=== PATIENT | female | born 1965 | race Caucasian/White ===

== ENCOUNTER 2021-04-21 00:51 | Emergency (ER) | payer OTHER ==
[~2021-04-21] VITALS: Ht 165.1 cm; Wt 89.4 kg
[2021-04-21] MEDS ORDERED: KETOROLAC TROMETHAMINE 30 MG/ML VIAL IV STA (00:54)
[2021-04-21] MEDS ORDERED: SODIUM CHLORIDE 0.9% 1000ML 1,000 ML IV STA (00:54)
[2021-04-21] MEDS ORDERED: ONDANSETRON HCL INJ 2MG/ML 2ML 2 MG/ML VIAL IV STA (01:23)
[2021-04-21 01:55] LABS: BASOPHILS % 0.7 % (0.0-1.0); EOSINOPHILS # (AUTO) 0.1 (0.0-0.4); EOSINOPHILS % 2.4 % (0.0-6.0); HEMATOCRIT 40.6 % (34.2-44.1); HEMOGLOBIN 14.3 g/dL (12.0-16.0); LYMPHOCYTES # (AUTO) 1.9 (1.0-3.2); LYMPHOCYTES % 33.5 % (18.0-39.1); MEAN CORPUSCULAR HEMOGLOBIN 32.1 pg (28-32); MEAN CORPUSCULAR HGB CONC 35.2 g/dL (31-35); MONOCYTES # (AUTO) 0.4 (0.2-0.8); MONOCYTES % 6.9 % (4.4-11.3); NEUTROPHILS # (AUTO) 3.3 (2.1-6.9); NEUTROPHILS % 56.2 % (38.7-80.0); PLATELET COUNT 234 x10e3/uL (140-360); RED BLOOD COUNT 4.46 x10e6/uL (3.6-5.1)
[2021-04-21 02:00] LABS: BACTERIA,URINE FEW /HPF; CLARITY,URINE CLEAR (CLEAR); COLOR,URINE YELLOW (YELLOW); EPITHELIAL CELLS,URINE FEW /LPF; KETONES,URINE NEGATIVE (NEGATIVE); LEUKOCYTE ESTERASE ,URINE NEGATIVE (NEGATIVE); NITRITE,URINE NEGATIVE (NEGATIVE); PROTEIN,URINE DIPSTICK NEGATIVE (NEGATIVE); RBC,URINE 0-5 /HPF (0-5); URINE UROBILINOGEN 0.2 mg/dL (0.2 - 1); WBC,URINE (MAN) 0-5 /HPF (0-5)
[2021-04-21] MEDS ORDERED: MORPHINE SULFATE INJ 4 MG/ML INJ 1ML IV STA (02:16)
[2021-04-21 02:19] LABS: ALBUMIN 3.7 g/dL (3.5-5.0); ALBUMIN/GLOBULIN RATIO 1.1 (0.8-2.0); ANION GAP 16.1 mmol/L (8-16); CALCIUM 8.6 mg/dL (8.4-10.2); CREATININE, SERUM 0.97 mg/dL (0.57-1.11); POTASSIUM 4.1 mmol/L (3.5-5.1)
[2021-04-21] MEDS ORDERED: INSULIN REGULAR, HUMAN 100 UNIT/1 ML IV STA (02:34)
[2021-04-21] MEDS ORDERED: ACETAMINOPHEN-1 EAC4 PO (03:20)
[2021-04-21] MEDS ORDERED: ONDANSETRON ODT4 MG PO (03:20)
[2021-04-21] MEDS ORDERED: CIPRO500 MG PO (03:20)
== END 2021-04-21 03:45 | disposition home or self-care (01) ==
LOC: ER 00:56
DX: M54.5 Low back pain (principal); R11.2 Nausea with vomiting, unspecified; E11.65 Type 2 diabetes mellitus with hyperglycemia; D35.02 Benign neoplasm of left adrenal gland
CPT/HCPCS: 36415; 36600; 74176; 80053; 81001; 85025; 99284; J1885; J2270; J2405; J7030